=== PATIENT | male | born 1945 | race Caucasian/White ===

== ENCOUNTER 2021-06-16 03:28 | Day surgery (SDC) | payer MEDICARE, OTHER, SELFPAY ==
[2021-06-09 15:56] VITALS: BMI 26.7
--- NOTE | 2021-06-16 10:15 | WPDANESEPPF ---
Anes - Initial Pre Proc Eval Procedure: Operation Date: 06/16/21 13:00 Proposed Procedures p Screening Colonoscopy - Michael Vo MD Date/Time: 06/16/21 10:15 Surgeon: Michael Vo MD Pre Op Diagnosis: neoplasm screening Patient Data Age: 76 Gender: M Height: 1.8 m Weight: 87 kg Allergies Allergy/AdvReac Type Severity Reaction Status Date / Time Sulfa (Sulfonamide Allergy Unknown Unknown Verified 06/16/21 12:23 Antibiotics) Home Medications Medication Instructions Recorded Confirmed Type alfuzosin 10 mg PO DAILY 06/09/21 06/09/21 History amlodipine 10 mg PO DAILY 06/09/21 06/09/21 History aspirin 81 mg PO DAILY 06/09/21 06/09/21 History atorvastatin 80 mg PO DAILY 06/09/21 06/09/21 History cetirizine 10 mg PO DAILY 06/09/21 06/09/21 History coenzyme Q10 [Co Q-10] 10 mg PO ONCE 06/09/21 06/09/21 History empagliflozin 10 mg PO DAILY 06/09/21 06/09/21 History finasteride 5 mg PO DAILY 06/09/21 06/09/21 History fluocinonide 1 applic TOPICAL DAILY 06/09/21 06/09/21 History furosemide 40 mg PO DAILY 06/09/21 06/09/21 History glimepiride 2 mg PO DAILY 06/09/21 06/09/21 History jayaeagvhkl-fctqbeloh-bje C-Mn 1 cap PO BID 06/09/21 06/09/21 History [Glucosamine 1500 Complex] isosorbide mononitrate 30 mg PO DAILY 06/09/21 06/09/21 History levothyroxine 50 mcg PO DAILY 06/09/21 06/09/21 History lisinopril 10 mg PO DAILY 06/09/21 06/09/21 History metformin 500 mg PO BID 06/09/21 06/09/21 History metoprolol tartrate 25 mg PO DAILY 06/09/21 06/09/21 History nitroglycerin 400 mcg SUBLINGUAL DAILY PRN 06/09/21 06/09/21 History omeprazole 20 mg PO DAILY 06/09/21 06/09/21 History turmeric 400 mg PO DAILY 06/09/21 06/09/21 History zinc 100 mg PO DAILY 06/09/21 06/09/21 History Patient hx anesthesia problems: none Family hx anesthesia problems: none [facility] Past Medical History Medical History Chronic GERD Diabetes HTN (hypertension) Hypercholesterolemia Hypothyroidism Overweight (BMI 25.0-29.9) Social History Social History Smoking status: Former smoker Tobacco type: pipe Alcohol intake: current Alcohol use details: sociallyvery seldom Living arrangements: with family Spiritual care concerns: No Anes - Eval Final PreProcedure Day of Procedure 06/16/21 10:15 Patient weight: overweight Heart: regular rate and rhythm Lungs: clear to auscultation and normal air movement Airway: Mallampati scale class II Neurological: alert and oriented Last oral intake: >/= 8 hours ASA classification: III Emergent: no Anesthetic plan: proceed Anesthesia type and monitoring: general GIVS Informed Consent: The patient's anesthetic plan and its attendant risks and benefits were discussed with the patient/family/POA. Questions were solicited and answers provided to the satisfaction of the patient/family/POA.
--- NOTE | 2021-06-16 12:23 | PM.HPGS ---
History of Present Illness History of Present Illness Consent: Risks, benefits, and alternatives have been discussed and questions answered. Patient agrees to proceed with procedure. Chief complaint: neoplasm screening Narrative: Shola Wharton is a 76 year old male Referred for colon cancer screening Review of Systems Review of Systems: All systems reviewed & are unremarkable except as noted in HPI and below PMFSH Past Medical History Medical History Chronic GERD Diabetes HTN (hypertension) Hypercholesterolemia Hypothyroidism Overweight (BMI 25.0-29.9) Social History Social History Smoking status: Former smoker Tobacco type: pipe Alcohol intake: current Alcohol use details: sociallyvery seldom Living arrangements: with family Spiritual care concerns: No Meds Home Medications and Allergies Home Medications Medication Instructions Recorded Confirmed Type alfuzosin 10 mg PO DAILY 06/09/21 06/09/21 History amlodipine 10 mg PO DAILY 06/09/21 06/09/21 History aspirin 81 mg PO DAILY 06/09/21 06/09/21 History atorvastatin 80 mg PO DAILY 06/09/21 06/09/21 History cetirizine 10 mg PO DAILY 06/09/21 06/09/21 History coenzyme Q10 [Co Q-10] 10 mg PO ONCE 06/09/21 06/09/21 History empagliflozin 10 mg PO DAILY 06/09/21 06/09/21 History finasteride 5 mg PO DAILY 06/09/21 06/09/21 History fluocinonide 1 applic TOPICAL DAILY 06/09/21 06/09/21 History furosemide 40 mg PO DAILY 06/09/21 06/09/21 History glimepiride 2 mg PO DAILY 06/09/21 06/09/21 History yfiykjdxzss-ujaojikro-nnc C-Mn 1 cap PO BID 06/09/21 06/09/21 History [Glucosamine 1500 Complex] isosorbide mononitrate 30 mg PO DAILY 06/09/21 06/09/21 History levothyroxine 50 mcg PO DAILY 06/09/21 06/09/21 History lisinopril 10 mg PO DAILY 06/09/21 06/09/21 History metformin 500 mg PO BID 06/09/21 06/09/21 History metoprolol tartrate 25 mg PO DAILY 06/09/21 06/09/21 History nitroglycerin 400 mcg SUBLINGUAL DAILY PRN 06/09/21 06/09/21 History omeprazole 20 mg PO DAILY 06/09/21 06/09/21 History turmeric 400 mg PO DAILY 06/09/21 06/09/21 History zinc 100 mg PO DAILY 06/09/21 06/09/21 History Allergies Allergy/AdvReac Type Severity Reaction Status Date / Time Sulfa (Sulfonamide Allergy Unknown Unknown Verified 06/16/21 12:23 Antibiotics) Exam Resp: Auscultation: clear to auscultation bilaterally Cardio: Rate: regular rate Rhythm: regular rhythm GI: GI Palp: Yes Soft to palpation and No Tenderness to palpation present (GI) Assessment and Plan Assessment and plan (1) Colon cancer screening: Code(s): Z12.11 - Encounter for screening for malignant neoplasm of colon Status: Acute Assessment and Plan: Colonoscopy with possible biopsy or polypectomy or cautery or injection of substances.
[2021-06-16 12:25] VITALS: BP 137/78; PULSE 87; RESP 20; TEMP 36.1; O2SAT 100; BMI 27.0
[2021-06-16] MEDS: LACTATED RINGERS 1,000 ML 150 ML IV CONT (12:34)
[2021-06-16 12:39] LABS: Glucose Point of Care 143 mg/dl (65-105)
[2021-06-16 13:17] VITALS: BP 109/66; PULSE 59; RESP 21; O2SAT 95
[2021-06-16 13:27] VITALS: BP 107/68; PULSE 61; RESP 20; O2SAT 95
[2021-06-16 13:37] VITALS: BP 118/73; PULSE 59; RESP 20; O2SAT 100
== END 2021-06-16 13:52 | disposition home or self-care (01) ==
PROVIDERS: PCP Family Medicine; Visit Provider Internal Medicine Gastroenterology
PROC: 0DJD8ZZ Inspection of Lower Intestinal Tract, Via Natural or Artificial Opening Endoscopic (ICD-10-PCS; CPT 45378; principal; 2021-06-16 13:00)
DX: Z12.11 Encounter for screening for malignant neoplasm of colon (principal); K57.30 Diverticulosis of large intestine without perforation or abscess without bleeding; I10 Essential (primary) hypertension; E78.00 Pure hypercholesterolemia, unspecified; E11.9 Type 2 diabetes mellitus without complications; E03.9 Hypothyroidism, unspecified; K21.9 Gastro-esophageal reflux disease without esophagitis; Z87.891 Personal history of nicotine dependence; Z79.82 Long term (current) use of aspirin; Z79.84 Long term (current) use of oral hypoglycemic drugs
CPT/HCPCS: G0121; 82948; J2704; J7120